=== PATIENT | female | born 1945 | race Caucasian/White ===

== ENCOUNTER 2021-08-22 08:00 | Outpatient (CLI) | payer MEDICARE, BC ==
--- NOTE | 2021-08-22 17:49 | XRAY Report ---
PROCEDURE: Foot 3 View LT INDICATIONS: CONTUSION OF LEFT FOOT TECHNIQUE: 3 views of the foot were acquired. COMPARISON: None FINDINGS: Bones: There is a potential avulsion fracture fragment seen lateral to the cuboid measuring 7 mm. A moderate hallux valgus deformity is seen, with associated degenerative change of the first metatars ophalangeal joint. Milder degenerative changes are seen elsewhere, including along the Lisfranc joint . There is an accessory ossicle seen, an os tibiale externum. A plantar calcaneal spur is incidentally noted. Soft tissues: No tibiotalar joint effusion. Achilles tendon appears normal. IMPRESSION: Potential 7 mm avulsion fracture along the lateral aspect of the foot adjacent to the cuboid. If it would be helpful for clinical management decision making, please consider a dedicated CT for fu rther evaluation. Moderate hallux valgus deformity seen, with associated focal degenerative change of the first metatar sophalangeal joint. Reviewed by: Robbie Win MD on 08/22/2021 4:48 PM AKST Approved by: Robbie Win MD on 08/22/2021 4:48 PM AK Station ID: [id number]
== END 2021-08-22 23:59 | disposition home or self-care (01) ==
LOC: DI.S 08:00
PROVIDERS: ATTEND Emergency Medicine
DX: M19.072 Primary osteoarthritis, left ankle and foot (principal); M20.12 Hallux valgus (acquired), left foot

== ENCOUNTER 2021-09-21 11:00 | Outpatient (CLI) | payer MEDICARE, BC ==
--- NOTE | 2021-09-21 13:01 | XRAY Report ---
PROCEDURE: Foot 3 View LT INDICATIONS: CUBOID FRACTURE TECHNIQUE: 3 views of the foot were acquired. COMPARISON: Left foot radiographs 08/22/2021 FINDINGS: Bones: Small ossification is again seen lateral to the calcaneocuboid articulation, which could repre sent an avulsion fragment or less likely an os perineum. No suspicious bony lesions. Moderate hallux valgus is seen with severe degenerative changes at the first metatarsophalangeal joint. Mild overlapp ing of the first and second toes is noted. There is a plantar calcaneal enthesophyte. Soft tissues: Mild soft tissue edema in the midfoot. IMPRESSION: 1.Ossification lateral to the calcaneocuboid joint appears unchanged, again possibly representing an avulsion fragment versus accessory ossicle. MRI could be obtained for further evaluation if indicated clinically. 2.Moderate hallux valgus with severe first metatarsophalangeal osteoarthrosis. Reviewed by: Nicholas Preston MD on 09/21/2021 11:59 AM ELIO Approved by: Nicholas Preston MD on 09/21/2021 11:59 AM ELIO Station ID: [id number]
== END 2021-09-21 23:59 | disposition home or self-care (01) ==
LOC: DI.WOS 11:00
PROVIDERS: ATTEND Orthopaedic Surgery
DX: S92.212A Displaced fracture of cuboid bone of left foot, initial encounter for closed fracture (principal); S90.32XA Contusion of left foot, initial encounter; M20.12 Hallux valgus (acquired), left foot; M19.072 Primary osteoarthritis, left ankle and foot

== ENCOUNTER 2022-11-06 08:00 | Outpatient (CLI) | payer MEDICARE, BC ==
[2022-11-06 18:11] LABS: BILIRUBIN,URINE NEGATIVE (NEGATIVE); GLUCOSE, URINE (UA) NEGATIVE (NEGATIVE); KETONES,URINE (UA) NEGATIVE (NEGATIVE); LEUKOCYTE ESTERASE, URINE MODERATE (NEGATIVE); NITRITE,URINE NEGATIVE (NEGATIVE); OCCULT BLOOD,URINE TRACE-INTA (NEGATIVE); PH,URINE 6.5 PH (5.0-7.5); PROTEIN,URINE NEGATIVE (NEGATIVE); UROBILINOGEN,URINE 0.2 (NORMAL) E.U./dL (NORMAL)
[2022-11-06 18:19] LABS: BACTERIA,URINE Few /HPF (None Seen); CLARITY,URINE CLOUDY (CLEAR); RBC,URINE 0-5 /HPF (0-5); SQUAMOUS EPITHELIAL CELL,UR RARE Squamous (<= Few); WBC,URINE >25 /HPF (0-5)
== END 2022-11-06 23:59 | disposition home or self-care (01) ==
LOC: LAB.S 08:00
PROVIDERS: ATTEND Emergency Medicine
DX: R30.0 Dysuria (principal)
CPT/HCPCS: 81001; 87077; 87086; 87181

== ENCOUNTER 2023-06-03 12:40 | Outpatient (CLI) | payer MEDICARE ==
--- NOTE | 2023-06-03 16:46 | DEXA Report ---
PROCEDURE: Dexa Spine and/or Hip INDICATIONS: OSTEOPOROSIS TECHNIQUE: Dual energy x-ray absorptiometry (DXA) was performed on a [employer]. Regions measur ed are the AP Spine, femoral neck, and if needed forearm. COMPARISON: None. FINDINGS: Lumbar Spine: Bone Mineral Density 1.417 g/cm/cm,T score 2.0. Left Forearm: Bone Mineral Density 0.615 g/cm/cm, T score -3.0. (T score greater or equal to -1.0: NORMAL) (T score from -1.1 to -2.4: OSTEOPENIA) (T score less than or equal to -2.5 to: OSTEOPOROSIS) Impression: By WHO criteria, this patient has osteoporosis. Patients with diagnosis of osteoporosis or osteopenia should have regular bone mineral density assess ment. For those eligible for Medicare, routine testing is allowed once every 2 years. Testing frequ ency can be increased for patients who have rapidly progressing disease or for those who are receivin g medical therapy to restore bone mass. Reviewed by: Nicholas Preston MD on 06/03/2023 4:44 PM PST Approved by: Nicholas Preston MD on 06/03/2023 4:44 PM PST Station ID: [id number]
== END 2023-06-03 12:41 | disposition home or self-care (01) ==
LOC: DI 12:40
PROVIDERS: ATTEND Internal Medicine
DX: M81.0 Age-related osteoporosis without current pathological fracture (principal)

== ENCOUNTER 2023-06-13 07:54 | Outpatient (CLI) | payer MEDICARE ==
[2023-06-13 08:12] LABS: BASOPHILS # (AUTO) 0.1 10^3/uL (0.0-0.1); BASOPHILS % (AUTO) 1.7 %; EOSINOPHILS # (AUTO) 0.5 10^3/uL (0.0-0.7); EOSINOPHILS % (AUTO) 5.8 %; HCT - HEMATOCRIT 42.9 % (37.0-47.0); HGB - HEMOGLOBIN 14.2 g/dL (12.0-16.0); LYMPHOCYTES # (AUTO) 1.8 10^3/uL (1.5-3.5); LYMPHOCYTES % (AUTO) 23.2 %; MEAN CORPUSCULAR HEMOGLOBIN 31.3 pg (27.0-31.0); MEAN CORPUSCULAR HGB CONC 33.1 g/dL (32.0-36.0); MEAN CORPUSCULAR VOLUME 94.7 fL (81.0-99.0); MEAN PLATELET VOLUME 9.9 fL (7.9-10.8); MONOCYTES # (AUTO) 0.6 10^3/uL (0.0-1.0); MONOCYTES % (AUTO) 7.3 %; NEUTROPHILS # (AUTO) 4.8 10^3/uL (1.5-6.6); NEUTROPHILS % (AUTO) 61.6 %; PLT - PLATELET COUNT 234 10^3/uL (130-450); RED BLOOD COUNT 4.53 10^6/uL (4.20-5.40); RED CELL DISTRIBUTION WIDTH 12.2 % (12.0-15.0); WHITE BLOOD COUNT 7.7 x10^3/uL (4.8-10.8)
[2023-06-13 08:29] LABS: ALBUMIN 4.1 g/dL (3.2-5.5); ALBUMIN/GLOBULIN RATIO 1.6 (1.0-2.2); ALKALINE PHOSPHATASE 54 IU/L (42-121); ALT ALANINE AMINOTRANSFERASE 7 IU/L (10-60); AST ASPARTATE AMINOTRANSFERASE 14 IU/L (10-42); BILIRUBIN,TOTAL 0.7 mg/dL (0.2-1.0); BUN - BLOOD UREA NITROGEN 22 mg/dL (6-20); CALCIUM 9.3 mg/dL (8.5-10.3); CARBON DIOXIDE - CO2 29 mmol/L (21-32); CHLORIDE 107 mmol/L (101-111); CHOL/HDL RATIO 2.4 (<4.4); CHOLESTEROL 190 mg/dL; CREATININE 0.7 mg/dL (0.6-1.3); GFR - MDRD 82 (>89); GLUCOSE 102 mg/dL (74-104); HDL CHOLESTEROL 79 mg/dL; LDL CHOLESTEROL,CALCULATED 98 mg/dL; LDL/HDL RATIO 1.2 (<4.4); POTASSIUM 4.4 mmol/L (3.5-4.5); SODIUM 141 mmol/L (135-145); TOTAL PROTEIN 6.7 g/dL (6.4-8.9); TRIGLYCERIDES 67 mg/dL (48-352); VLDL CHOLESTEROL 13 mg/dL
[2023-06-13 08:43] LABS: THYROID STIMULATING HORMONE 0.21 uIU/mL (0.34-5.60)
== END 2023-06-13 07:55 | disposition home or self-care (01) ==
LOC: LAB 07:54
PROVIDERS: ATTEND Internal Medicine
DX: E03.9 Hypothyroidism, unspecified (principal); R31.9 Hematuria, unspecified; Z13.220 Encounter for screening for lipoid disorders
CPT/HCPCS: 36415; 80053; 80061; 83721; 84439; 84443; 85025

== ENCOUNTER 2023-07-07 10:20 | Outpatient (CLI) | payer MEDICARE ==
[2023-07-07 10:56] LABS: CALCIUM, IONIZED 1.17 mmol/L (1.15-1.33); VBG PH 7.345 (7.31-7.41)
== END 2023-07-07 10:21 | disposition home or self-care (01) ==
LOC: LAB 10:20
PROVIDERS: ATTEND Internal Medicine
DX: M81.0 Age-related osteoporosis without current pathological fracture (principal); Z87.310 Personal history of (healed) osteoporosis fracture
CPT/HCPCS: 36415; 82306; 82330; 83970